=== PATIENT | female | born 1960 | race Hispanic/Latino ===

== ENCOUNTER 2017-12-20 14:30 | Inpatient (IN) | payer MEDICARE ==
[~2017-12-20] VITALS: Ht 157.5 cm; Wt 121.9 kg
[~2017-12-20 14:30] MED LIST: ALPR2TAB7 PO; AMLO10TA2 PO; Aspirin PO; ESOM40CA PO; HYDR-2132 PO; VALS320T15 PO; ZOLP10TA6 PO
[2017-12-24 13:08] LABS: APPEARANCE,URINE Cloudy (CLEAR); BILIRUBIN,URINE Negative (NEGATIVE); COLOR,URINE Yellow (YELLOW); GLUCOSE, URINE (UA) Negative (NEGATIVE); KETONES,URINE Negative (NEGATIVE); LEUKOCYTE ESTERASE ,URINE Trace (NEGATIVE); NITRATE,URINE Positive (NEGATIVE); OCCULT BLOOD,URINE Negative (NEGATIVE); PH,URINE 6.5 (5.0-8.0); PROTEIN,URINE POS 1+ (NEGATIVE); UROBILINOGEN,URINE 0.2 mg/dL (0.2-1.0)
[2017-12-24 13:14] VITALS: BP 173/93
[2017-12-24 13:17] LABS: CREATININE 1.1 mg/dL (0.5-1.5); POTASSIUM 4.4 mmol/L (3.5-5.1)
[2017-12-24 13:28] LABS: BACTERIA,URINE Many /HPF (None Seen); RBC,URINE 0-1 /HPF (0-1); SQUAMOUS EPITHELIAL CELL,UR Rare /LPF (0-2)
[2017-12-25] VITALS (22 sets, daily range): BP systolic 120–183; BP diastolic 65–108
[2017-12-25] MEDS: CEFAZOLIN SODIUM 1 GM VIAL IVP SCH ×3 (05:00→19:34)
[2017-12-25] MEDS ORDERED: GENTAMICIN SULFATE 240 MG in SODIUM CHLORIDE 0.9% 100 ML IV SCH (07:00)
[2017-12-25] MEDS ORDERED: CEFAZOLIN SODIUM 1 GM VIAL ONE ×2 (07:28→11:13)
[2017-12-25] MEDS ORDERED: TRANEXAMIC ACID 1000MG/10ML IV ONE ×2 (07:28→11:11)
[2017-12-25] MEDS ORDERED: BUPIVACAINE/EPI/PF 0.25% 30ML VIAL IJ ONE (07:28)
[2017-12-25] MEDS ORDERED: LACTATED RINGERS 1000ML 1,000 ML IV ONE (08:06)
[2017-12-25] MEDS ORDERED: ACETAMINOPHEN EXTRA STRENGTH 500 MG TABLET ONE (08:27)
[2017-12-25] MEDS ORDERED: OXYCODONE HCL 10 MG TAB.SR.12H PO ONE (08:28)
[2017-12-25] MEDS ORDERED: CELECOXIB 200 MG CAP ONE (08:28)
[2017-12-25] MEDS ORDERED: KETOROLAC TROMETHAMINE 15MG/ML ONE (08:28)
[2017-12-25] MEDS ORDERED: MIDAZOLAM HCL 1 MG/ML 2ML VIAL ONE ×2 (08:51→08:58)
[2017-12-25] MEDS ORDERED: LIDOCAINE PF 2% 5ML ABBOJECT ONE (08:55)
[2017-12-25] MEDS ORDERED: GLYCOPYRROLATE 0.2 MG/ML 5 ML VIAL ONE ×2 (08:55→11:31)
[2017-12-25] MEDS ORDERED: DEXAMETHASONE SOD PHOSPHATE 10MG/ML 1ML VIAL ONE (08:55)
[2017-12-25] MEDS ORDERED: PROPOFOL 10 MG/ML 20ML VIAL IV ONE (08:56)
[2017-12-25] MEDS ORDERED: TYL3 PO (10:05)
[2017-12-25] MEDS ORDERED: FENTANYL CITRATE PF 50 MCG/1 ML 5ML AMP IV ONE (11:26)
[2017-12-25] MEDS ORDERED: NEOSTIGMINE METHYLSULFATE 1MG/ML IV ONE (11:31)
[2017-12-25] MEDS ORDERED: DiphenhydrAMINE HCL 50 MG/ML VIAL IVP PRN (11:45)
[2017-12-25] MEDS ORDERED: CALCIUM CARBONATE 500 MG TABLET PO PRN (11:45)
[2017-12-25] MEDS ORDERED: DIPHENHYDRAMINE HCL 25 MG CAPSULE PO PRN (11:45)
[2017-12-25] MEDS ORDERED: POTASSIUM CHLORIDE 10% ELIXIR 20 MEQ/15 ML UDCUP PO PRN (11:45)
[2017-12-25] MEDS ORDERED: POTASSIUM CHLORIDE 20MEQ/100ML 100 ML IV PRN (11:45)
[2017-12-25] MEDS ORDERED: OXYCODONE HCL 5 MG TAB PO PRN (11:45)
[2017-12-25] MEDS ORDERED: LIDOCAINE HCL-MPF 1% 2ML VIAL IVP PRN (11:45)
[2017-12-25] MEDS ORDERED: POTASSIUM CHLORIDE 20 MEQ ERTAB PO PRN (11:45)
[2017-12-25] MEDS ORDERED: TRAMADOL HCL 50 MG TABLET PO PRN (11:45)
[2017-12-25] MEDS: ACETAMINOPHEN 325 MG TAB PO SCH ×3 (11:45→23:54)
[2017-12-25] MEDS ORDERED: FERROUS FUMARATE 324 MG TABLET PO PRN (11:45)
[2017-12-25] MEDS: PSYLLIUM SEED 1 EACH PACKET PO SCH (12:00)
[2017-12-25] MEDS ORDERED: MEPERIDINE-PF 25 MG/ML SYG ONE ×2 (12:41→12:50)
[2017-12-25] MEDS: SODIUM CHLORIDE 0.9% 1000ML 1,000 ML IV SCH ×2 (13:30→21:40)
[2017-12-25] MEDS: OXYCODONE HCL 5 MG TAB PO PRN ×2 (13:33→23:54)
[2017-12-25] MEDS: KETOROLAC TROMETHAMINE 15MG/ML IV PRN ×2 (13:44→21:37)
[2017-12-25] MEDS: CEFAZOLIN 3GM /D5W 100ML 100 ML IV SCH ×2 (17:40→23:54)
[2017-12-25] MEDS ORDERED: FAMOTIDINE 20MG TAB 20 MG TAB ONE (18:16)
[2017-12-25] MEDS: FAMOTIDINE 20MG TAB 20 MG TAB PO SCH (18:18)
[2017-12-25] MEDS: ONDANSETRON HCL MDV 20ML 2 MG/ML VIAL IVP PRN (19:38)
[2017-12-25] MEDS ORDERED: ALPRAZOLAM 1 MG TAB PO PRN (19:45)
[2017-12-25] MEDS ORDERED: ZOLPIDEM TARTRATE 5 MG TAB PO PRN (19:45)
[2017-12-25] MEDS: PREGABALIN 25 MG CAP PO SCH (21:35)
[2017-12-25] MEDS: CELECOXIB 200 MG CAP PO SCH (21:35)
[2017-12-25] MEDS: ASPIRIN 325 MG TABLET PO SCH (21:36)
[2017-12-26] VITALS: BP 150/72
[2017-12-26] MEDS: SODIUM CHLORIDE 0.9% 1000ML 1,000 ML IV SCH (01:09)
[2017-12-26 04:00] VITALS: BP 132/75
[2017-12-26 05:00] LABS: HEMATOCRIT 37.9 % (36-48); MEAN CORPUSCULAR HEMOGLOBIN 29.9 pg (27.0-33.0); MEAN CORPUSCULAR HGB CONC 34.1 g/dL (32.0-36.0); MEAN CORPUSCULAR VOLUME 87.7 fL (79-99); PLATELET COUNT (AUTO) 337 K/uL (130-400); RED BLOOD CELL COUNT(AUTO) 4.32 MIL/uL (4.00-5.50); RED CELL DISTRIBUTION WIDTH 14.7 % (11.0-15.5); WHITE BLOOD COUNT (AUTO) 10.9 K/uL (4.8-10.8)
[2017-12-26 05:08] LABS: CREATININE 1.3 mg/dL (0.5-1.5); POTASSIUM 4.5 mmol/L (3.5-5.1)
[2017-12-26] MEDS: ACETAMINOPHEN 325 MG TAB PO SCH ×3 (05:19→17:48)
[2017-12-26] MEDS: CELECOXIB 200 MG CAP PO SCH (08:04)
[2017-12-26] MEDS: ASPIRIN 325 MG TABLET PO SCH (08:04)
[2017-12-26] MEDS: PREGABALIN 25 MG CAP PO SCH (08:05)
[2017-12-26] MEDS: FAMOTIDINE 20MG TAB 20 MG TAB PO SCH (08:05)
[2017-12-26] MEDS: OXYCODONE HCL 5 MG TAB PO PRN ×2 (08:06→13:21)
[2017-12-26 08:13] VITALS: BP 187/101
[2017-12-26] MEDS ORDERED: PANTOPRAZOLE SODIUM 40 MG TABLET.DR PO SCH (09:00)
[2017-12-26] MEDS ORDERED: AMLODIPINE BESYLATE 5 MG TAB PO SCH (09:00)
[2017-12-26] MEDS ORDERED: HOME MEDICATION 1 EACH PO SCH (09:00)
[2017-12-26] MEDS ORDERED: POLYETHYLENE GLYCOL 3350 17 GM POWD.PACK PO SCH (09:00)
[2017-12-26] MEDS: KETOROLAC TROMETHAMINE 15MG/ML IV PRN ×2 (09:54→16:21)
[2017-12-26 12:07] VITALS: BP 164/87
[2017-12-26] MEDS: PSYLLIUM SEED 1 EACH PACKET PO SCH (13:16)
[2017-12-26] MEDS: ONDANSETRON HCL MDV 20ML 2 MG/ML VIAL IVP PRN (16:20)
[2017-12-26 17:28] VITALS: BP 174/87
[2017-12-26] MEDS ORDERED: ASPI-1012 PO (18:12)
[2017-12-26] MEDS ORDERED: HYDR-309 PO (18:12)
[2017-12-27] MEDS ORDERED: BISACODYL 5 MG TABLET.DR PO PRN (11:45)
[2017-12-28] MEDS ORDERED: BISACODYL 10 MG SUPP.RECT RC PRN (11:45)
== END 2017-12-26 19:00 | disposition home health service (06) | DRG 470 ==
LOC: EDSTATUS 12-24 14:30 → DAHIP 12-25 06:50 → 4AH 12-25 13:08
PROVIDERS: ADMIT Orthopaedic Surgery; ATTEND Orthopaedic Surgery
PROC: 0SRC0J9 Replacement of Right Knee Joint with Synthetic Substitute, Cemented, Open Approach (ICD-10-PCS; principal; 2017-12-25 09:59)
DX: M17.0 Bilateral primary osteoarthritis of knee (principal); E66.01 Morbid (severe) obesity due to excess calories; Z96.652 Presence of left artificial knee joint; I10 Essential (primary) hypertension; E78.00 Pure hypercholesterolemia, unspecified; J44.9 Chronic obstructive pulmonary disease, unspecified; Z90.710 Acquired absence of both cervix and uterus; Z82.49 Family history of ischemic heart disease and other diseases of the circulatory system; G89.29 Other chronic pain; Z28.21 Immunization not carried out because of patient refusal
CPT/HCPCS: 36415; 80048; 81001; 85027; A4218; C1713; J0690; J1100; J1580; J1885; J2001; J2175; J2250; J2704; J2710; J3010; J3490; J7030; J7120